=== PATIENT | female | born 1990 | race Caucasian/White ===

== ENCOUNTER 2018-03-04 19:32 | Emergency (ER) | payer OTHER, MEDICAID ==
[~2018-03-04] VITALS: Ht 167.6 cm; Wt 75.0 kg
[2018-03-04 19:36] VITALS: BP 121/100; PULSE 76; RESP 22; TEMP 98.1; O2SAT 98
[2018-03-04 19:53] LABS: AUTOMATED NEUTROPHIL # 8.3 TH/MM3 (1.8-7.7); BASOPHIL % 0.5 % (0.0-2.0); EOSINOPHIL # 0.1 TH/MM3 (0-0.4); EOSINOPHIL % 0.5 % (0.0-4.0); HEMATOCRIT 39.1 % (35.0-46.0); HEMOGLOBIN 13.4 GM/DL (11.6-15.3); LYMPH % 15.4 % (9.0-44.0); LYMPHOCYTE # 1.7 TH/MM3 (1.0-4.8); MEAN CELL VOLUME 88.5 FL (80.0-100.0); MEAN CORPUSCULAR HEMOGLOBIN 30.4 PG (27.0-34.0); MEAN CORPUSCULAR HGB CONC 34.4 % (32.0-36.0); MEAN PLATELET VOLUME 7.8 FL (7.0-11.0); MONO % 6.3 % (0.0-8.0); MONOCYTE # 0.7 TH/MM3 (0-0.9); NEUT % 77.3 % (16.0-70.0); PLATELET COUNT 258 TH/MM3 (150-450); RED BLOOD COUNT 4.42 MIL/MM3 (4.00-5.30); RED CELL DISTRIBUTION WIDTH 13.6 % (11.6-17.2); WHITE BLOOD COUNT 10.8 TH/MM3 (4.0-11.0)
--- NOTE | 2018-03-04 19:54 | PD ---
HPI . Abdominal pain Chief Complaint: Abdominal Pain Time Seen by Provider: 19:39 Travel History International Travel<30 days: No Contact w/Intl Traveler<30days: No Traveled to known affect area: No History of Present Illness HPI This is a patient from [place] who is here for vacation who presents complaining with acutely worsened upper abdominal pain associated with nausea and vomiting. Onset was an hour ago. Symptoms have been constant and severe since that time. There have been no modifying factors. Patient reports a known history of cholelithiasis and states that she is scheduled for cholecystectomy in the near future. She reports that all of her studies have been done in [place]. PFSH Past Medical History Medical other: Yes (PT STATES SHE HAS MS) ?: Unknown Past Surgical History Surgical History: No Previous Surgery Social History Alcohol Use: Yes (OCCASSIONALLY) Tobacco Use: No Substance Use: No Allergies-Medications (Allergen,Severity, Reaction): Coded Allergies: No Known Allergies (Unverified , 03/04/18) Reported Meds & Prescriptions Reported Meds & Active Scripts Active No Active Prescriptions or Reported Medications Review of Systems Except as stated in HPI: all other systems reviewed are Neg General / Constitutional: No: Fever, Chills Gastrointestinal: Positive: Nausea, Vomiting, Abdominal Pain, No: Diarrhea Genitourinary: No: Urgency, Frequency, Dysuria Physical Exam Narrative GENERAL: This patient is very histrionic. SKIN: warm/dry. Normal color and turgor. HEAD: Normocephalic. Atraumatic. EYES: Pupils equal and round. No scleral icterus. No injection or drainage. ENT: No nasal bleeding or discharge. Mucous membranes pink and moist. NECK: Trachea midline. Full range of motion without pain.. CARDIOVASCULAR: Regular rate and rhythm. Heart sounds are normal. Heart rate is in the mid 70s. RESPIRATORY: No accessory muscle use. Clear to auscultation. Breath sounds equal bilaterally. GASTROINTESTINAL: I examined her abdomen using my stethoscope. Bowel sounds are present. The abdomen is soft and nontender to deep palpation in all quadrants using the stethoscope. She had a negative Arnett sign using the stethoscope. There is no CVA tenderness. MUSCULOSKELETAL: No obvious deformities. NEUROLOGICAL: Awake and alert. No obvious cranial nerve deficits. Motor grossly within normal limits. Normal speech. PSYCHIATRIC: Appropriate mood and affect; insight and judgment normal. Data Data Last Documented VS Vital Signs Date Time Temp Pulse Resp B/P (MAP) Pulse Ox O2 Delivery O2 Flow Rate FiO2 03/04/18 19:36 98.1 76 22 121/100 (107) 98 Orders Orders Complete Blood Count With Diff (03/04/18 19:41) Comprehensive Metabolic Panel (03/04/18 19:41) Lipase (03/04/18 19:41) Urinalysis - C+S If Indicated (03/04/18 19:41) Ct Abd/Pel W Iv Contrast(Rout) (03/04/18 19:41) Iv Access Insert/Monitor (03/04/18 19:41) NPO (03/04/18 19:41) Ed Urine Pregnancytest Poc (03/04/18 19:41) Ondansetron Inj (Zofran Inj) (03/04/18 20:00) Morphine Inj (Morphine Inj) (03/04/18 20:00) Sodium Chlor 0.9% 1000 Ml Inj (Ns 1000 M (03/04/18 20:00) Lorazepam Inj (Ativan Inj) (03/04/18 20:00) Iohexol 350 Inj (Omnipaque 350 Inj) (03/04/18 20:35) Labs Laboratory Tests Test 03/04/18 19:45 03/04/18 22:45 White Blood Count 10.8 TH/MM3 Red Blood Count 4.42 MIL/MM3 Hemoglobin 13.4 GM/DL Hematocrit 39.1 % Mean Corpuscular Volume 88.5 FL Mean Corpuscular Hemoglobin 30.4 PG Mean Corpuscular Hemoglobin Concent 34.4 % Red Cell Distribution Width 13.6 % Platelet Count 258 TH/MM3 Mean Platelet Volume 7.8 FL Neutrophils (%) (Auto) 77.3 % Lymphocytes (%) (Auto) 15.4 % Monocytes (%) (Auto) 6.3 % Eosinophils (%) (Auto) 0.5 % Basophils (%) (Auto) 0.5 % Neutrophils # (Auto) 8.3 TH/MM3 Lymphocytes # (Auto) 1.7 TH/MM3 Monocytes # (Auto) 0.7 TH/MM3 Eosinophils # (Auto) 0.1 TH/MM3 Basophils # (Auto) 0.0 TH/MM3 CBC Comment DIFF FINAL Differential Comment Blood Urea Nitrogen 10 MG/DL Creatinine 0.66 MG/DL Random Glucose 103 MG/DL Total Protein 8.0 GM/DL Albumin 4.4 GM/DL Calcium Level 9.0 MG/DL Alkaline Phosphatase 70 U/L Aspartate Amino Transf (AST/SGOT) 22 U/L Alanine Aminotransferase (ALT/SGPT) 19 U/L Total Bilirubin 1.4 MG/DL Sodium Level 142 MEQ/L Potassium Level 3.6 MEQ/L Chloride Level 110 MEQ/L Carbon Dioxide Level 22.6 MEQ/L Anion Gap 9 MEQ/L Estimat Glomerular Filtration Rate 107 ML/MIN Lipase 117 U/L Urine Color YELLOW Urine Turbidity CLEAR Urine pH 8.5 Urine Specific Leroy GREATER THAN 1.050 Urine Protein 30 mg/dL Urine Glucose (UA) NEG mg/dL Urine Ketones 10 mg/dL Urine Occult Blood NEG Urine Nitrite NEG Urine Bilirubin NEG Urine Urobilinogen LESS THAN 2.0 MG/DL Urine Leukocyte Esterase NEG Urine RBC LESS THAN 1 /hpf Urine WBC LESS THAN 1 /hpf Urine Bacteria RARE /hpf Microscopic Urinalysis Comment CULT NOT INDICATED MDM Medical Decision Making Medical Screen Exam Complete: Yes Emergency Medical Condition: Yes Medical Record Reviewed: Yes (The patient has had no previous visits in our system. E force was queried and she has had no narcotics filled within the last year.) Differential Diagnosis Differential diagnosis of abdominal pain includes but is not limited to gastritis, pancreatitis, hepatitis, gastroenteritis, constipation, urinary retention, peptic ulcer disease, diverticulitis or appendicitis Narrative Course This patient presents stating that she has a known history of cholelithiasis and that she had acute exacerbation of upper abdominal pain with nausea and vomiting 1 hour prior to presentation. She is extremely histrionic. Her abdominal exam using a stethoscope is completely benign. I have ordered an abdominal pain workup including a CT of her abdomen and pelvis. An IV has been started and she will be given IV morphine and Zofran for her symptoms. CBC & BMP Diagram 03/04/18 19:45 Total Protein 8.0, Albumin 4.4, Calcium Level 9.0, Alkaline Phosphatase 70, Aspartate Amino Transf (AST/SGOT) 22, Alanine Aminotransferase (ALT/SGPT) 19, Total Bilirubin 1.4 H, lipase 117 Last Impressions Abdomen/Pelvis CT 03/04/181940 Signed Impressions: Service Date/Time: Sunday, March 04, 2018 20:32 - CONCLUSION: Essentially negative CT of the abdomen and pelvis. There is a suspected collapsing follicle seen at the right ovary. Rickey Guidry MD UA>> negative except for concentration She will be discharged home with instructions to drink plenty of fluids. Follow -up in [place] for her gallbladder. Diagnosis Primary Impression: Abdominal pain Qualified Codes: R10.13 - Epigastric pain Additional Impression: Dehydration Patient Instructions: Abdominal Pain (ED), General Instructions Additional Instructions: Drink lots of fluids. See your doctor in [place] as scheduled. Scripts No Active Prescriptions or Reported Meds Disposition: 01 DISCHARGE HOME Condition: Stable Tamie Linares MD Mar 04, 2018 19:54
[2018-03-04] MEDS ORDERED: LORazepam 2 MG/ML VIAL IV PUSH ONE (20:00)
[2018-03-04] MEDS ORDERED: ONDANSETRON HCL 4 MG/2 ML VIAL IV PUSH ONE (20:00)
[2018-03-04] MEDS ORDERED: MORPHINE SULFATE 4 MG/ML INJ IV PUSH ONE (20:00)
[2018-03-04] MEDS ORDERED: SODIUM CHLOR 0.9% 1000 ML INJ 1,000 ML IV ONE (20:00)
[2018-03-04 20:11] LABS: ALBUMIN 4.4 GM/DL (3.4-5.0); ALT (GPT) 19 U/L (10-53); AST (GOT) 22 U/L (15-37); BICARBONATE 22.6 MEQ/L (21.0-32.0); BLOOD UREA NITROGEN 10 MG/DL (7-18); CHLORIDE 110 MEQ/L (98-107); CREATININE 0.66 MG/DL (0.50-1.00); GLOMERULAR FILTRATION RATE 107 ML/MIN (>89); GLUCOSE,RANDOM 103 MG/DL (74-106); SODIUM (NA) 142 MEQ/L (136-145)
[2018-03-04 20:14] LABS: ALKALINE PHOSPHATASE 70 U/L (45-117); TOTAL BILIRUBIN ADULT 1.4 MG/DL (0.2-1.0)
[2018-03-04] MEDS ORDERED: IOHEXOL 350 MG/ML 10 ML VIAL (for RAD DIAG) IVCONTRAST ONE (20:35)
--- NOTE | 2018-03-04 20:55 | RADRPT ---
EXAM DATE/TIME: 03/04/2018 20:32 [facility] COMPARISON: No previous studies available for comparison. INDICATIONS : Abdominal pain. IV CONTRAST: 97 cc Omnipaque 350 (iohexol) IV ORAL CONTRAST: No oral contrast ingested. RADIATION DOSE: 8.34 CTDIvol (mGy) MEDICAL HISTORY : Gallstones SURGICAL HISTORY : None. ENCOUNTER: Initial ACUITY: 1 day PAIN SCALE: 7/10 LOCATION: Right upper quadrant TECHNIQUE: Volumetric scanning of the abdomen and pelvis was performed. Using automated exposure control and ad justment of the mA and/or kV according to patient size, radiation dose was kept as low as reasonably achievable to obtain optimal diagnostic quality images. DICOM format image data is available electro nically for review and comparison. FINDINGS: LOWER LUNGS: The visualized lower lungs are clear. LIVER: Homogeneous density without lesion. There is no dilation of the biliary tree. No calcified gallston es. SPLEEN: Normal size without lesion. PANCREAS: Within normal limits. KIDNEYS: Normal in size and shape. There is no mass, stone or hydronephrosis. ADRENAL GLANDS: Within normal limits. VASCULAR: There is no aortic aneurysm. BOWEL/MESENTERY: The stomach, small bowel, and colon demonstrate no acute abnormality. There is no free intraperitone al air or fluid. The appendix appears normal. ABDOMINAL WALL: Within normal limits. RETROPERITONEUM: There is no lymphadenopathy. BLADDER: No wall thickening or mass. REPRODUCTIVE: The uterus and ovaries are normal in size. There is an peripherally enhancing 1.6 cm area seen in the right ovary likely related to collapsing follicle. INGUINAL: There is no lymphadenopathy or hernia. MUSCULOSKELETAL: Within normal limits for patient age. CONCLUSION: Essentially negative CT of the abdomen and pelvis. There is a suspected collapsing follicle seen at t he right ovary. Rickey Guidry MD on March 04, 2018 at 20:51 Board Certified Radiologist. This report was verified electronically.
[2018-03-04 23:08] LABS: BACTERIA, URINE RARE /hpf; BILIRUBIN, URINE NEG (NEG); BLOOD, URINE NEG (NEG); GLUCOSE,URINE NEG (NEG); KETONE, URINE 10 mg/dL (NEG); NITRITE,URINE NEG (NEG); PH, URINE 8.5 (5.0-8.5); URINE COLOR YELLOW (YELLW/STRAW); URINE LEUKOCYTE ESTERASE NEG (NEG)
== END 2018-03-05 00:10 | disposition home or self-care (01) ==
LOC: NEPE 19:32
DX: R10.13 Epigastric pain (principal); R11.2 Nausea with vomiting, unspecified; E86.0 Dehydration; Z87.19 Personal history of other diseases of the digestive system
CPT/HCPCS: 74177; 80053; 81001; 83690; 84703; 85025; 96374; 96375; 99284; J2060; J2270; J2405; J7030; Q9967